=== PATIENT | female | born 2000 | race Caucasian/White ===

== ENCOUNTER 2022-04-18 14:23 | Emergency (ER) | payer OTHER ==
[~2022-04-18 14:23] MED LIST: MACROBID100 MG PO
[2022-04-18 16:31] LABS: BILIRUBIN 1+ mg/dL (NEGATIVE); BLOOD NEGATIVE Ery/uL (NEGATIVE); CLARITY CLEAR (CLEAR); COLOR ORANGE (YELLOW); GLUCOSE (U) TRACE mg/dL (NORMAL); LEUKOCYTES 2+ Leu/uL (NEGATIVE); NITRITE POSITIVE (NEGATIVE); PROTEIN 2+ mg/dL (NEGATIVE)
[2022-04-18 16:36] LABS: BACTERIA TRACE; URINARY WBC 20-50
[2022-04-20 21:06] LABS: CHLAMYDIA TRACHOMATIS, NAA Negative (Negative); NEISSERIA GONORRHOEAE, NAA Positive (Negative)
== END 2022-04-18 16:47 | disposition home or self-care (01) ==
LOC: FER 14:23
PROVIDERS: Nurse Practitioner Family
DX: N39.0 Urinary tract infection, site not specified (principal); Z28.310 Unvaccinated for COVID-19
CPT/HCPCS: 81001; 87088; 87491; 87591; 99283; J0696

== ENCOUNTER 2022-06-18 10:26 | Emergency (ER) | payer OTHER ==
[2022-06-18 11:24] LABS: BILIRUBIN NEGATIVE (NEGATIVE); BLOOD NEGATIVE Ery/uL (NEGATIVE); CLARITY CLEAR (CLEAR); COLOR YELLOW (YELLOW); GLUCOSE (U) NORMAL (NORMAL); LEUKOCYTES 2+ Leu/uL (NEGATIVE); NITRITE NEGATIVE (NEGATIVE); PROTEIN TRACE (LOW) mg/dL (NEGATIVE)
[2022-06-18 11:33] LABS: URINARY WBC 20-50
[2022-06-18 11:34] LABS: BACTERIA 1+
[2022-06-18] MEDS ORDERED: VIBRAMYCIN100 MG PO (13:43)
[2022-06-18] MEDS ORDERED: ONDANSETRON HCL4 MG PO (13:43)
[2022-06-19 22:10] LABS: CHLAMYDIA TRACHOMATIS, NAA Negative (Negative); NEISSERIA GONORRHOEAE, NAA Positive (Negative)
== END 2022-06-18 13:48 | disposition home or self-care (01) ==
LOC: FER 10:26
PROVIDERS: Emergency Medicine
DX: A64 Unspecified sexually transmitted disease (principal); N39.0 Urinary tract infection, site not specified; Z28.310 Unvaccinated for COVID-19
CPT/HCPCS: 36415; 81001; 87210; 87491; 87591; 99284; J0696; Q0162